=== PATIENT | male | born 1995 | race Caucasian/White ===

== ENCOUNTER 2023-02-21 11:32 | Inpatient (IN) | payer OTHER ==
[~2023-02-21] VITALS: Ht 185.4 cm; Wt 125.0 kg
[2023-02-21 12:52] LABS: HEMOGLOBIN 14.3 g/dl (13.5-17.5); MEAN CORPUSCULAR HEMOGLOBIN 29.9 pg (27.0-33.0); MEAN CORPUSCULAR HGB CONC 33.3 g/dl (32.0-36.5); MEAN CORPUSCULAR VOLUME 89.8 fl (80.0-96.0); PLATELET COUNT, AUTOMATED 261 10^3/uL (150-450); RED BLOOD COUNT 4.79 10^6/uL (4.30-6.10); WHITE BLOOD COUNT 5.4 10^3/uL (4.0-10.0)
[2023-02-21 13:10] LABS: ETHYL ALCOHOL (ETHANOL) 0.006 % (0.000-0.010)
[2023-02-21 13:11] LABS: SALICYLATE LEVEL < 3.0 MG/DL (<30)
[2023-02-21 13:12] LABS: ACETAMINOPHEN LEVEL < 2.0 UG/ML (10.0-20.0); ALBUMIN 4.4 G/DL (3.2-5.2); ALKALINE PHOSPHATASE 67 U/L (46-116); ALT/SGPT 43 U/L (7.0-40); AST/SGOT 24 U/L (<34); BILIRUBIN,DIRECT 0.1 MG/DL (<0.4); BILIRUBIN,TOTAL 0.3 MG/DL (0.3-1.2); BLOOD UREA NITROGEN 12 MG/DL (9-23); CALCIUM LEVEL 9.1 MG/DL (8.5-10.1); CARBON DIOXIDE LEVEL 25 MMOL/L (20-31); CHLORIDE LEVEL 107 MMOL/L (98-107); CREATININE FOR GFR 0.81 MG/DL (0.70-1.30); GLOMERULAR FILTRATION RATE > 60.0 (>60); GLUCOSE, FASTING 92 MG/DL (60-100); POTASSIUM SERUM 4.5 MMOL/L (3.5-5.1); SODIUM LEVEL 141 MMOL/L (136-145); TOTAL PROTEIN 7.2 G/DL (5.7-8.2)
[2023-02-21 13:14] LABS: THYROID STIMULATING HORMONE 0.821 uIU/ML (0.55-4.78)
[2023-02-21 13:21] LABS: PHENCYCLIDINE URINE NEGATIVE (NEGATIVE)
[2023-02-21 13:22] LABS: AMPHETAMINES LEVEL URINE NEGATIVE (NEGATIVE); BARBITURATES URINE NEGATIVE (NEGATIVE); BENZODIAZEPINES URINE NEGATIVE (NEGATIVE); CANNABINOIDS URINE NEGATIVE (NEGATIVE); COCAINE METABOLITE URINE NEGATIVE (NEGATIVE); METHADONE URINE NEGATIVE (NEGATIVE); OPIATES URINE NEGATIVE (NEGATIVE)
[2023-02-21] MEDS ORDERED: HOME MED LIST COMPLETE! XX SCH (13:50)
[2023-02-21] MEDS ORDERED: NICOTINE 21MG/24HR 1 EA TRANSDERMAL TD ONE (15:25)
[2023-02-21] MEDS ORDERED: diphenhydrAMINE 25MG CAP PO PRN (17:15)
[2023-02-21] MEDS ORDERED: MOM 30ML SUSPENSION UDC PO PRN (17:15)
[2023-02-21] MEDS ORDERED: LORazepam 2 MG TAB PO PRN (17:15)
[2023-02-21] MEDS ORDERED: ACETAMINOPHEN TAB 650MG DOSE (2X325MG) PO PRN (17:15)
[2023-02-21] MEDS ORDERED: MAALOX 30 ML SUSP *UDC PO PRN (17:15)
[2023-02-21] MEDS: MULTIVITAMINS/MINERALS THERAP 1 TAB PO SCH (18:05)
[2023-02-21] MEDS: THIAMINE 100 MG TAB PO SCH (18:05)
[2023-02-21] MEDS: FOLIC ACID 1MG TAB PO SCH (18:06)
[2023-02-21 18:35] VITALS: BP 164/85
[2023-02-21 18:37] VITALS: BP 164/85
[2023-02-21] MEDS: IBUPROFEN 400MG TAB PO PRN (20:18)
[2023-02-21] MEDS: NICOTINE POLACRILEX 2 MG GUM PO PRN (20:41)
[2023-02-22 02:35] VITALS: BP 120/73
[2023-02-22] MEDS: NICOTINE POLACRILEX 2 MG GUM PO PRN ×5 (06:10→22:42)
[2023-02-22] MEDS: MULTIVITAMINS/MINERALS THERAP 1 TAB PO SCH (08:37)
[2023-02-22] MEDS: FOLIC ACID 1MG TAB PO SCH (08:37)
[2023-02-22] MEDS: THIAMINE 100 MG TAB PO SCH ×2 (08:37→22:41)
[2023-02-22] MEDS ORDERED: NICOTINE 21MG/24HR 1 EA TRANSDERMAL TD SCH (09:00)
[2023-02-22 10:48] VITALS: BP 149/81
[2023-02-22 14:07] VITALS: BP 147/80
[2023-02-22 14:33] VITALS: BP 147/80
[2023-02-22] MEDS ORDERED: ONDANSETRON 4MG ORAL DISINTEGRATING TAB PO PRN (18:40)
[2023-02-22] MEDS ORDERED: PILL CUTTER 1 EACH XX PRN (19:05)
[2023-02-22 22:00] VITALS: BP 148/71
[2023-02-22] MEDS: traZODone 50 MG TAB PO PRN (22:42)
[2023-02-23 06:00] VITALS: BP 134/69
[2023-02-23 06:18] VITALS: BP 134/69
[2023-02-23] MEDS: NICOTINE POLACRILEX 2 MG GUM PO PRN ×4 (06:41→19:39)
[2023-02-23] MEDS: FOLIC ACID 1MG TAB PO SCH (09:23)
[2023-02-23] MEDS: MULTIVITAMINS/MINERALS THERAP 1 TAB PO SCH (09:23)
[2023-02-23] MEDS: THIAMINE 100 MG TAB PO SCH ×2 (09:23→19:39)
[2023-02-23] MEDS ORDERED: LOPERAMIDE 2 MG CAPLET PO PRN (13:15)
[2023-02-23] MEDS ORDERED: LOPERAMIDE 2 MG CAPLET PO ONE (13:15)
[2023-02-23 13:18] VITALS: BP 135/85
[2023-02-23 14:38] VITALS: BP 128/64
[2023-02-23 16:23] VITALS: BP 127/60
[2023-02-23] MEDS: traZODone 50 MG TAB PO PRN (21:43)
[2023-02-23] MEDS: IBUPROFEN 400MG TAB PO PRN (21:44)
[2023-02-23 23:15] VITALS: BP 120/73
[2023-02-24] MEDS: NICOTINE POLACRILEX 2 MG GUM PO PRN ×2 (04:00→08:30)
[2023-02-24] MEDS: IBUPROFEN 400MG TAB PO PRN (04:00)
[2023-02-24 06:14] VITALS: BP 117/57
[2023-02-24] MEDS: MULTIVITAMINS/MINERALS THERAP 1 TAB PO SCH (08:29)
[2023-02-24] MEDS: THIAMINE 100 MG TAB PO SCH (08:29)
[2023-02-24] MEDS: FOLIC ACID 1MG TAB PO SCH (08:30)
== END 2023-02-24 10:14 | disposition home or self-care (01) | DRG 881 ==
LOC: M ED 11:32 → M ED INP 17:13 → M PSY 18:32
PROVIDERS: ADMIT Psychiatry & Neurology Psychiatry; ATTEND Psychiatry & Neurology Psychiatry
DX: F32.A Depression, unspecified (principal); F43.21 Adjustment disorder with depressed mood; F10.10 Alcohol abuse, uncomplicated; F17.290 Nicotine dependence, other tobacco product, uncomplicated; Z63.5 Disruption of family by separation and divorce

== ENCOUNTER 2024-03-04 04:15 | Emergency (ER) | payer OTHER ==
[~2024-03-04] VITALS: Ht 188 cm; Wt 130.3 kg
[2024-03-04 04:16] VITALS: BP 133/77; TEMP 96.6; O2SAT 98
[2024-03-04] MEDS: FAMOTIDINE 20 MG TAB PO ONE (05:43)
[2024-03-04] MEDS: diphenhydrAMINE 50MG CAP PO ONE (05:43)
[2024-03-04] MEDS: predniSONE 20 MG TAB PO ONE (05:43)
[2024-03-04] MEDS ORDERED: PEPC1TAB5 PO (06:40)
[2024-03-04] MEDS ORDERED: PRED20TA PO (06:40)
== END 2024-03-04 07:20 | disposition home or self-care (01) ==
LOC: M ED 04:15
DX: L50.9 Urticaria, unspecified (principal)
CPT/HCPCS: 99282; J7512

== ENCOUNTER 2024-12-16 01:58 | Emergency (ER) | payer OTHER ==
[~2024-12-16] VITALS: Ht 185.4 cm; Wt 126.1 kg
[~2024-12-16 01:58] MED LIST: PEPC1TAB5 PO; PRED20TA PO
[2024-12-16] MEDS: NICOTINE POLACRILEX 2 MG GUM PO ONE (02:36)
[2024-12-16 03:52] VITALS: BP 123/87; O2SAT 99
== END 2024-12-16 03:55 | disposition home or self-care (01) ==
LOC: M ED 01:58
DX: F10.129 Alcohol abuse with intoxication, unspecified (principal); F17.200 Nicotine dependence, unspecified, uncomplicated; Z79.899 Other long term (current) drug therapy